=== PATIENT | female | born 1990 | race Caucasian/White ===

== ENCOUNTER 2024-11-07 17:08 | Emergency (ER) | payer OTHER, SELFPAY ==
[2024-11-07 17:17] VITALS: BP 131/77; PULSE 77; TEMP 36.6; O2SAT 99; BMI 25.7
--- NOTE | 2024-11-07 17:30 | CT_ITS ---
The [address] [address] Patient Name: NABIL HAUSER MRN: [id number] date: 1990 Sex: F Assigned Patient Location: ER Current Patient Location: ER Accession/Order Number: [id number] Exam Date: 11/07/2024 17:41 Report Date: 11/07/2024 18:09 At the request of: VESTA ARMIJO Procedure: CT head/brain wo con EXAM: CT head/brain wo con, CT cervical spine wo con HISTORY: Patient fell on 11/01/2024 and hit the back of the head on the floor. Patient has headache and neck pain. TECHNIQUE: Axial CT scans through the head and cervical spine were obtained without IV contrast administration. Coronal and sagittal reformations were performed. Dose reduction techniques were achieved by using: automated exposure control and/or adjustment of mA and /or kV according to patient size and/or use of iterative reconstruction technique. HEAD CT COMPARISON: None. FINDINGS: The cerebral hemispheres have normal white and nina matter and corticomedullary differentiation. To the limit of CT, the posterior fossa appears unremarkable. The ventricular system and cortical sulci are normal for the patient's age. No area of abnormal mass-effect or edema or intracranial hemorrhage. No depressed skull fracture is present. The visualized orbits show no acute process. The visualized paranasal sinuses are clear. Middle ear cavities are clear. Mastoids are clear. CT/CT head/brain wo con IMPRESSION: No acute intracranial process. CERVICAL SPINE CT FINDINGS: No fracture or posttraumatic malalignment is shown. Straightening of the cervical spine is noted. A small posterior central disc protrusion each at C3-C4, C4-C5 and C6-C7. At C5-C6, decreased disc height and mild posterior discovertebral complex. No central spinal stenosis. Prevertebral soft tissue space appears normal. Visualized intracranial contents appear normal. The visualized neck shows no adenopathy. Visualized lung apices are clear. IMPRESSION: No acute fracture or posttraumatic malalignment. Straightening of the cervical spine, secondary to either positioning or muscle spasm. Electronically authenticated by: JOSE BUSTAMANTE Date: 11/07/2024 18:09
--- NOTE | 2024-11-07 17:30 | CT_ITS ---
The [address] [address] Patient Name: NABIL HAUSER MRN: [id number] date: 1990 Sex: F Assigned Patient Location: ER Current Patient Location: ER Accession/Order Number: [id number] Exam Date: 11/07/2024 17:41 Report Date: 11/07/2024 18:09 At the request of: VESTA ARMIJO Procedure: CT cervical spine wo con EXAM: CT head/brain wo con, CT cervical spine wo con HISTORY: Patient fell on 11/01/2024 and hit the back of the head on the floor. Patient has headache and neck pain. TECHNIQUE: Axial CT scans through the head and cervical spine were obtained without IV contrast administration. Coronal and sagittal reformations were performed. Dose reduction techniques were achieved by using: automated exposure control and/or adjustment of mA and /or kV according to patient size and/or use of iterative reconstruction technique. HEAD CT COMPARISON: None. FINDINGS: The cerebral hemispheres have normal white and nina matter and corticomedullary differentiation. To the limit of CT, the posterior fossa appears unremarkable. The ventricular system and cortical sulci are normal for the patient's age. No area of abnormal mass-effect or edema or intracranial hemorrhage. No depressed skull fracture is present. The visualized orbits show no acute process. The visualized paranasal sinuses are clear. Middle ear cavities are clear. Mastoids are clear. CT/CT cervical spine wo con IMPRESSION: No acute intracranial process. CERVICAL SPINE CT FINDINGS: No fracture or posttraumatic malalignment is shown. Straightening of the cervical spine is noted. A small posterior central disc protrusion each at C3-C4, C4-C5 and C6-C7. At C5-C6, decreased disc height and mild posterior discovertebral complex. No central spinal stenosis. Prevertebral soft tissue space appears normal. Visualized intracranial contents appear normal. The visualized neck shows no adenopathy. Visualized lung apices are clear. IMPRESSION: No acute fracture or posttraumatic malalignment. Straightening of the cervical spine, secondary to either positioning or muscle spasm. Electronically authenticated by: JOSE BUSTAMANTE Date: 11/07/2024 18:09
--- NOTE | 2024-11-07 17:44 | ED_ITS ---
HPI HPI - Head Injury General Chief complaint: Head Injury Stated complaint: [facility] Time Seen by Provider: 11/07/24 17:22 Source: patient Mode of arrival: walk-in History of Present Illness HPI Narrative: The patient works at [employer], was sitting on her chair almost 7 days ago on Monday when she had the chair broken and she fell backwards hitting her head, there was no loss of consciousness or any other concern at that time but she has been having some neck pain and headache The patient denies any upper or lower extremity weakness although sometimes she could feel tingling in her feet bilaterally but that is not consistent all the time Related Data Previous Rx's ?Medication ?Instructions ?Recorded diclofenac sodium 75 mg 75 mg PO BID PRN pain #14 tabs 11/07/24 tablet,delayed release orphenadrine citrate 100 mg 100 mg PO .QHS PRN muscle spasm 11/07/24 tablet,extended release #10 tabs Allergies Allergy/AdvReac Type Severity Reaction Status Date / Time No Known Drug Allergies Allergy Verified 11/07/24 17:22 Opioid HPI Opioid Management Most Recent Pain and Opioid Data: Last Pain Scale 5 11/07/24 17:30 11/07/24 Review of Systems ROS Status of ROS 10 or more systems reviewed and unremark able except as noted in history and below PFSH PFSH Social History Little interest or pleasure in doing things: not at all Feeling down, depressed, or hopeless: not at all Exam Narrative Exam Narrative: Nurses notes and vital signs reviewed and patient is not hypoxic. General: Well-appearing and in no apparent distress. Skin: Warm, dry, no pallor noted. No rash. Head: Normocephalic, palpation of the occipital scalp on the right side with no obvious swelling or edema Neck: Supple, right upper paraspinal muscle tenderness at the upper cervical level and some tenderness in the posterior aspect of the scalp Eye: Pupils are equal, round and EOMI. No scleral icterus. Ears, Nose, Mouth, and Throat: TM are clear, no nasal mucosal hypertrophy. Oral mucosa is moist, no posterior oropharynx erythema, uvula is mid-line Cardiovascular: Regular Rate and Rhythm without murmur, gallop or rub. Respiratory: No accessory muscle use or respiratory distress. Lungs are clear to auscultation, no wheezing, rales or rhonchi Chest Wall: no tenderness Back: No midline thoracic or lumbar vertebral tenderness. No CVA tenderness Musculoskeletal: normal ROM, no calf or popliteal tenderness, no lower extremity edema/swelling GI: Abdomen is soft, non-distended. Normal bowel sounds. No masses appreciated. No tenderness to palpation. No rebound, guarding, or rigidity noted. Neurological: A&O x4. No cranial nerve dysfunction observed. No truncal ataxia. Moves all extremities. Sensation intact. Psychiatric: Cooperative and interactive. Normal mood and affect. Constitutional Vital Signs, click to edit/add: Last Vital Signs Temp 97.8 F 11/07/24 17:17 Pulse 77 11/07/24 17:17 Resp 16 11/07/24 17:17 BP 131/77 11/07/24 17:17 Pulse Ox 99 11/07/24 17:17 O2 Del Method Room Air 11/07/24 17:17 Course Vital Signs Vital signs: Vital Signs Temperature 97.8 F 11/07/24 17:17 Pulse Rate 77 11/07/24 17:17 Respiratory Rate 16 11/07/24 17:17 Blood Pressure 131/77 11/07/24 17:17 Pulse Oximetry 99 11/07/24 17:17 Oxygen Delivery Method Room Air 11/07/24 17:17 Temperature 97.8 F 11/07/24 17:17 Pulse Rate 77 11/07/24 17:17 Respiratory Rate 16 11/07/24 17:17 Blood Pressure 131/77 11/07/24 17:17 Pulse Oximetry 99 11/07/24 17:17 Oxygen Delivery Method Room Air 11/07/24 17:17 MDM - Head Injury MDM Narrative Medical decision making narrative: CT of the head as well as CT cervical spine showed that the patient have no acute intracranial pathology but she does have some spasm showing in the CT cervical spine which could be secondary to the sprain of the muscles The patient was treated in the ER with Toradol discharged home with Voltaren and Norflex Work comp papers filled The patient is to follow up with primary care physician in next 2-3 days or to return to the emergency department should any of the signs or symptoms worsen or new symptoms develop. The patient agrees with the following Diagnosis and Treatment plan and the patient will be discharged home. Discharge Plan Discharge Chief Complaint: Head Injury Clinical Impression: Neck sprain, Closed head injury Patient Disposition: Home, Self-Care Time of Disposition Decision: 18:13 Condition: Good Prescriptions / Home Meds: New diclofenac sodium 75 mg tablet,delayed release (DR/EC) 75 mg PO BID PRN (Reason: pain ) Qty: 14 0RF orphenadrine citrate 100 mg tablet extended release 100 mg PO .QHS PRN (Reason: muscle spasm) Qty: 10 0RF Print Language: Azerbaijani Instructions: Head Injury (DC), Neck Pain (ED) Referrals: Physician,Non-Staff, MD [Physician] - 1 week
[2024-11-07] MEDS: KETOROLAC TROMETHAMINE 30 MG/ML VIAL IM (18:29)
== END 2024-11-07 18:34 | disposition home or self-care (01) ==
PROVIDERS: Emergency Provider Emergency Medicine; PCP Nurse Practitioner Family
DX: S09.8XXA Other specified injuries of head, initial encounter (principal); S13.9XXA Sprain of joints and ligaments of unspecified parts of neck, initial encounter; W07.XXXA Fall from chair, initial encounter
CPT/HCPCS: 70450; 72125; 96372; 99285; J1885

== ENCOUNTER 2024-11-23 09:54 | Outpatient (OUT) | payer OTHER, SELFPAY ==
--- OUTSIDE RECORDS SUMMARY | 2024-11-23 09:57 | XMS_ITS | CCD ---
Author Organization [facility] Problems Problem Classification Problem Date Documented Da te Episodic/Chronic Allergic reactions (1 source) Contact dermatitis; Translations: [Unspecified contact dermatitis, unspecified cause] 08-13-2024 Episodic Vital Signs Date Time Vital Sign Value Performing Clinician Faci lity 08-13-2024 18:08-0500 Body height 160.02 cm [facility] 08-13-2024 18:08-0500 Body mass index (BMI) [Ratio] 27.1 kg/m2 [facility] 08-13-2024 18:08-0500 Body temperature 98 [degF] [facility] 08-13-2024 18:08-0500 Body weight 69.62 kg [facility] 08-13-2024 18:08-0500 Diastolic blood pressure 61 mm[Hg] [facility] 08-13-2024 18:08-0500 Heart rate 67 /min [facility] 08-13-2024 18:08-0500 Respiratory rate 18 /min [facility] 08-13-2024 18:08-0500 SaO2% (BldA) [Mass fraction] 98 % [facility] 08-13-2024 18:08-0500 Systolic blood pressure 100 mm[Hg] [facility] Encounters Encounter Date Encounter Type Care Provider Facility Start: 08-13-2024 End: 08-13-2024 ambulatory [facility] Work Phone: Start: 08-13-2024 End: 08-13-2024 Patient encounter procedure [facility] Work Phone: Payers Date Payer Category Payer Policy ID Private Health Insurance [facility] [id number] Social History Date Type Detail Facility [facility] Work Phone: Start: 1990 Sex Assigned At Female F [facility] Evaluation note Note Date & Type Note Facility Evaluation note No assessment information availa ble [facility] Work Phone: Chief Complaint and Reason for Visit Chief Complaint Poison ben Advance Directives Advance Directive Response Recorded Date/ Time Advance Directives No August 13, 2024 6:01pm Additional Source Comments Care Teams (unrecognized sec tion and content) Team Status: Active Member Role Status Dates PHYSICIAN NO FAMILY Primary Care Provider Active Team Status: Inactive Member Role Status Dates PHYSICIAN NO FAMILY Primary Care Provider Active Start: August 13, 2024 End: August 13, 2024 Kelsey Bass APRN Attending Provider Active Start: August 13, 2024 End: August 13, 2024 Goals (unrecognized section and content) Goals may be documented in a n alternate section FOR RECORDS PERTAINING TO PATIENTS WHO ARE OR HAVE BEEN ENROLLED IN A CHEMICAL DEPENDENCY/SUBSTANCEABUSE PROGRAM, SOME INFORMATION MAY BE OMITTED. This clinical summary was aggregated from multiple sources. Caution should be exercised in using it in the provision of clinical care. This summary normalizes information from multiple sources, and as a consequence, information in this document may materially change the coding, format and clinical context of patient data. In addition, data may be omitted in some cases. CLINICAL DECISIONS SHOULD BE BASED ON THE PRIMARY CLINICAL RECORDS. [employer] provides no warranty or guarantee of the accuracy or completeness of information in this document.
[2024-11-23 10:08] LABS: Basophils Percent Auto 0.2 % (0.2-2.0); Eosinophils Absolute Auto 0.1 10^3/uL (0.0-0.7); Eosinophils Percent Auto 1.4 % (0.9-7.0); Hematocrit 38.8 % (36.0-48.0); Hemoglobin 12.6 g/dL (12.0-16.0); Immature Granulocytes Abs Auto 0.01 10^3/uL (0.00-0.03); Immature Granulocytes Pct Auto 0.2 % (0.0-0.5); Lymphocytes Absolute Auto 0.9 10^3/uL (1.2-3.8); Lymphocytes Percent Auto 18.2 % (20.5-60.0); Mean Corpuscular HGB Conc 32.5 g/dL (29.9-35.2); Mean Corpuscular Hemoglobin 31.8 pg (26.7-34.0); Mean Platelet Volume 9.7 fL (9.5-13.5); Monocytes Absolute Auto 0.4 10^3/uL (0.3-0.8); Monocytes Percent Auto 7.4 % (1.7-12.0); Neutrophils Absolute Auto 3.8 10^3/uL (1.4-6.5); Neutrophils Percent Auto 72.6 % (43.0-75.0); Platelet Count 256 10^3/uL (150-450); Red Blood Count 3.96 10^6/uL (4.20-5.40); Red Cell Distribution Width 12.2 % (11.0-15.0); White Blood Count 5.2 10^3/uL (4.0-11.0)
[2024-11-23 10:30] LABS: Estimated Average Glucose 120 mg/dL; Glycohemoglobin A1C 5.8 % (4.5-6.2)
[2024-11-23 10:52] LABS: Alanine Aminotransferase 20 U/L (14-59); Albumin Globulin Ratio 1.1; Albumin Level 3.7 g/dL (3.4-5.0); Alkaline Phosphatase 52 U/L (46-116); Anion Gap 10.3; Aspartate Amino Transferase 12 U/L (15-37); BUN Creatinine Ratio 20.9; Bilirubin Total 0.7 mg/dL (0.2-1.0); Carbon Dioxide 30.7 mmol/L (21.0-32.0); Chloride 105 mmol/L (98-107); Cholesterol 197 mg/dL (<=200); Estimated GFR (African America >60 (>=60 mL/min/1.73m^2); Estimated GFR (Non-African Ame >60 (>=60 mL/min/1.73m^2); Globulin 3.5 g/dL; Glucose 92 mg/dL (74-106); HDL Cholesterol 66 mg/dL (40-60); Sodium 142 mmol/L (136-145); Thyroid Stimulating Hormone 1.084 uIU/mL (0.358-3.740); Total Protein 7.2 g/dL (6.4-8.2); Triglycerides 59 mg/dL (<=150); VLDL CHOLESTEROL 11.8 mg/dL
[2024-11-24 11:07] LABS: Insulin 15.1 uIU/mL (2.6-24.9)
== END 2024-11-23 09:55 | disposition home or self-care (01) ==
LOC: LAB 09:55
PROVIDERS: PCP Nurse Practitioner Family; Visit Provider Nurse Practitioner Family
DX: Z00.00 Encounter for general adult medical examination without abnormal findings (principal)
CPT/HCPCS: 36415; 80053; 80061; 82306; 83036; 83525; 83540; 84436; 84443; 84481; 85025